=== PATIENT | female | born 1965 | race African-American/Black ===

== ENCOUNTER 2021-08-01 08:36 | Inpatient (IN) | payer OTHER ==
[2021-08-01 09:26] VITALS: BMI 15.7
[2021-08-01] MEDS ORDERED: NICOTINE 10 MG CARTRIDGE (INHALER) IH PRN (10:01)
[2021-08-01] MEDS ORDERED: ONDANSETRON *ODT* 4 MG TABLET SL PRN (10:01)
[2021-08-01] MEDS ORDERED: MAGNESIUM CITRATE 300 ML BOTTLE PO PRN (10:01)
[2021-08-01] MEDS ORDERED: MAGNESIUM HYDROX 2400MG/30ML ORAL SUSPENSION 30 ML CUP PO PRN (10:01)
[2021-08-01] MEDS ORDERED: DICYCLOMINE HCL 10 MG CAPSULE PO PRN (10:01)
[2021-08-01] MEDS ORDERED: LOPERAMIDE HCL 2 MG CAPSULE PO PRN (10:01)
[2021-08-01] MEDS ORDERED: METHOCARBAMOL 500 MG TABLET PO PRN (10:01)
[2021-08-01] MEDS ORDERED: BISMUTH SUBSALICYLATE 262 MG/15 ML BTL PO PRN (10:01)
[2021-08-01] MEDS ORDERED: IBUPROFEN 400 MG TABLET (FP) PO PRN (10:01)
[2021-08-01] MEDS ORDERED: MAG HYDROX/AL HYDROX/SIMETH 30 ML UNIT-DOSE CUP PO PRN (10:01)
[2021-08-01] MEDS ORDERED: BENZOCAINE/MENTHOL (CHLORASEPTIC ) LOZENGE MM PRN (10:01)
[2021-08-01] MEDS ORDERED: ACETAMINOPHEN 325 MG TABLET (FP) PO PRN ×2 (10:01)
[2021-08-01] MEDS: NICOTINE 14 MG/24 HOURS TOPICAL PATCH TD SCH (12:20)
[2021-08-01] MEDS: PRENATAL VITAMINS W/ FOLIC ACID TABLET (FP) PO SCH (12:20)
[2021-08-01] MEDS: hydrOXYzine PAMOATE 25 MG CAPSULE (FP) PO SCH ×3 (14:02→23:00)
[2021-08-01] MEDS: DARUNAVIR/COB/EMTRI/TENOF (SYMTUZA) TABLET (NF) PO SCH (15:15)
[2021-08-01] MEDS: THIAMINE HCL 100 MG TABLET (FP) PO SCH (23:00)
[2021-08-01] MEDS: MELATONIN 5 MG TABLETS PO SCH (23:00)
[2021-08-02] MEDS: hydrOXYzine PAMOATE 25 MG CAPSULE (FP) PO SCH ×5 (06:26→22:43)
[2021-08-02] MEDS: EMTRICITABINE PO SCH (07:28)
[2021-08-02] MEDS: TENOFOVIR ALAFENAMIDE PO SCH (07:28)
[2021-08-02] MEDS: DARUNAVIR PO SCH (07:28)
[2021-08-02] MEDS: COBICISTAT PO SCH (07:28)
[2021-08-02] MEDS: DARUNAVIR/COB/EMTRI/TENOF (SYMTUZA) TABLET (NF) PO SCH (07:29)
[2021-08-02 09:57] LABS: HEMATOCRIT 38.9 % (32.4-45.2); HEMOGLOBIN 12.8 GM/dL (10.7-15.3); MCH 29.7 pg (25.7-33.7); MCHC 32.9 g/dl (32.0-36.0); MEAN CELL VOLUME 90.2 fl (80-96); MEAN PLT VOLUME 9.6 fl (7.5-11.1); PLATELET COUNT 250 10^3/uL (134-434); RBC 4.31 M/mm3 (3.60-5.2); RDW 14.6 % (11.6-15.6); WHITE BLOOD COUNT 5.4 K/mm3 (4.0-10.0)
[2021-08-02 10:01] LABS: BLOOD UREA NITROGEN 10.9 mg/dL (7-18); CALCIUM 9.3 mg/dL (8.5-10.1)
[2021-08-02 10:02] LABS: ALBUMIN 3.6 g/dl (3.4-5.0)
[2021-08-02 10:04] LABS: CREATININE 1.1 mg/dL (0.55-1.3)
[2021-08-02 10:06] LABS: BILIRUBIN,TOTAL 0.5 mg/dL (0.2-1); TOT PROT 7.4 g/dl (6.4-8.2)
[2021-08-02] MEDS: PRENATAL VITAMINS W/ FOLIC ACID TABLET (FP) PO SCH (11:02)
[2021-08-02] MEDS: NICOTINE 14 MG/24 HOURS TOPICAL PATCH TD SCH (11:02)
[2021-08-02] MEDS ORDERED: chlordiazePOXIDE HCL 25 MG CAPSULE PO PRN (12:00)
[2021-08-02] MEDS: chlordiazePOXIDE HCL 25 MG CAPSULE PO SCH ×2 (17:33→22:45)
[2021-08-02] MEDS: MELATONIN 5 MG TABLETS PO SCH (22:43)
[2021-08-02] MEDS: THIAMINE HCL 100 MG TABLET (FP) PO SCH (22:43)
[2021-08-03] MEDS: hydrOXYzine PAMOATE 25 MG CAPSULE (FP) PO SCH ×4 (07:21→18:14)
[2021-08-03] MEDS: chlordiazePOXIDE HCL 25 MG CAPSULE PO SCH ×3 (07:22→18:17)
[2021-08-03] MEDS: DARUNAVIR PO SCH (07:23)
[2021-08-03] MEDS: EMTRICITABINE PO SCH (07:23)
[2021-08-03] MEDS: TENOFOVIR ALAFENAMIDE PO SCH (07:23)
[2021-08-03] MEDS: COBICISTAT PO SCH (07:23)
[2021-08-03] MEDS: PRENATAL VITAMINS W/ FOLIC ACID TABLET (FP) PO SCH (10:42)
[2021-08-03] MEDS: NICOTINE 14 MG/24 HOURS TOPICAL PATCH TD SCH (10:42)
[2021-08-03 14:10] LABS: SARS-CoV-2 NAA Not Detected (Not Detected)
[2021-08-03] MEDS ORDERED: hydrOXYzine PAMOATE 50 MG CAPSULE (FP) PO PRN (22:00)
[2021-08-03] MEDS ORDERED: traZODone HCL 50 MG TABLET (FP) PO SCH (22:00)
[2021-08-03] MEDS ORDERED: diazePAM 5 MG TABLET PO ONE (23:08)
[2021-08-03] MEDS: THIAMINE HCL 100 MG TABLET (FP) PO SCH (23:29)
[2021-08-03] MEDS: MELATONIN 5 MG TABLETS PO SCH (23:29)
[2021-08-04] MEDS ORDERED: chlordiazePOXIDE HCL 25 MG CAPSULE PO SCH (05:00)
[2021-08-04] MEDS: TENOFOVIR ALAFENAMIDE PO SCH (10:48)
[2021-08-04] MEDS: COBICISTAT PO SCH (10:48)
[2021-08-04] MEDS: DARUNAVIR PO SCH (10:48)
[2021-08-04] MEDS: diazePAM 5 MG TABLET PO SCH ×3 (10:48→22:26)
[2021-08-04] MEDS: EMTRICITABINE PO SCH (10:48)
[2021-08-04] MEDS: NICOTINE 14 MG/24 HOURS TOPICAL PATCH TD SCH (10:49)
[2021-08-04] MEDS: PRENATAL VITAMINS W/ FOLIC ACID TABLET (FP) PO SCH (11:29)
[2021-08-04] MEDS ORDERED: diazePAM 5 MG TABLET PO SCH (22:00)
[2021-08-04] MEDS: MELATONIN 5 MG TABLETS PO SCH (22:25)
[2021-08-04] MEDS: THIAMINE HCL 100 MG TABLET (FP) PO SCH (22:26)
[2021-08-05] MEDS ORDERED: chlordiazePOXIDE HCL 10 MG CAPSULE PO PRN
[2021-08-05] MEDS ORDERED: chlordiazePOXIDE HCL 10 MG CAPSULE PO SCH (05:00)
[2021-08-05] MEDS: diazePAM 5 MG TABLET PO SCH ×2 (06:03→17:36)
[2021-08-05] MEDS: EMTRICITABINE PO SCH (08:15)
[2021-08-05] MEDS: DARUNAVIR PO SCH (08:15)
[2021-08-05] MEDS: COBICISTAT PO SCH (08:15)
[2021-08-05] MEDS: TENOFOVIR ALAFENAMIDE PO SCH (08:15)
[2021-08-05] MEDS: NICOTINE 14 MG/24 HOURS TOPICAL PATCH TD SCH (10:20)
[2021-08-05] MEDS: PRENATAL VITAMINS W/ FOLIC ACID TABLET (FP) PO SCH (10:20)
[2021-08-05] MEDS: MELATONIN 5 MG TABLETS PO SCH (22:54)
[2021-08-05] MEDS: THIAMINE HCL 100 MG TABLET (FP) PO SCH (22:54)
[2021-08-06] MEDS ORDERED: chlordiazePOXIDE HCL 10 MG CAPSULE PO SCH (05:00)
[2021-08-06] MEDS ORDERED: diazePAM 5 MG TABLET PO SCH (06:00)
[2021-08-06] MEDS ORDERED: diazePAM 5 MG TABLET PO ONE (06:00)
[2021-08-06] MEDS: EMTRICITABINE PO SCH (07:06)
[2021-08-06] MEDS: COBICISTAT PO SCH (07:06)
[2021-08-06] MEDS: DARUNAVIR PO SCH (07:06)
[2021-08-06] MEDS: TENOFOVIR ALAFENAMIDE PO SCH (07:06)
[2021-08-06] MEDS: NICOTINE 14 MG/24 HOURS TOPICAL PATCH TD SCH (10:06)
[2021-08-06] MEDS: PRENATAL VITAMINS W/ FOLIC ACID TABLET (FP) PO SCH (10:09)
[2021-08-06] MEDS: MELATONIN 5 MG TABLETS PO SCH (21:43)
[2021-08-06] MEDS: THIAMINE HCL 100 MG TABLET (FP) PO SCH (21:44)
[2021-08-07] MEDS ORDERED: chlordiazePOXIDE HCL 10 MG CAPSULE PO ONE (05:00)
[2021-08-07] MEDS ORDERED: diazePAM 5 MG TABLET PO ONE (06:00)
[2021-08-07] MEDS: TENOFOVIR ALAFENAMIDE PO SCH (07:11)
[2021-08-07] MEDS: DARUNAVIR PO SCH (07:11)
[2021-08-07] MEDS: EMTRICITABINE PO SCH (07:11)
[2021-08-07] MEDS: COBICISTAT PO SCH (07:11)
[2021-08-07] MEDS: PRENATAL VITAMINS W/ FOLIC ACID TABLET (FP) PO SCH (10:36)
[2021-08-07] MEDS: NICOTINE 14 MG/24 HOURS TOPICAL PATCH TD SCH (10:38)
[2021-08-07] MEDS: THIAMINE HCL 100 MG TABLET (FP) PO SCH (21:38)
[2021-08-07] MEDS: MELATONIN 5 MG TABLETS PO SCH (21:38)
[2021-08-08 08:44] VITALS: BP 103/65; PULSE 65; TEMP 97.3
[2021-08-08] MEDS: TENOFOVIR ALAFENAMIDE PO SCH (10:47)
[2021-08-08] MEDS: COBICISTAT PO SCH (10:47)
[2021-08-08] MEDS: EMTRICITABINE PO SCH (10:47)
[2021-08-08] MEDS: PRENATAL VITAMINS W/ FOLIC ACID TABLET (FP) PO SCH (10:47)
[2021-08-08] MEDS: DARUNAVIR PO SCH (10:47)
== END 2021-08-08 10:50 | disposition other institution (70) | DRG 774 ==
LOC: YASAS 08:36 → Y3N 11:19
PROVIDERS: ADMIT Allergy & Immunology; ATTEND Allergy & Immunology
PROC: HZ2ZZZZ Detoxification Services for Substance Abuse Treatment (ICD-10-PCS; principal; 2021-08-01)
DX: F10.230 Alcohol dependence with withdrawal, uncomplicated (principal); F14.20 Cocaine dependence, uncomplicated; F12.20 Cannabis dependence, uncomplicated; F17.210 Nicotine dependence, cigarettes, uncomplicated; Z21 Asymptomatic human immunodeficiency virus [HIV] infection status; G47.00 Insomnia, unspecified; Z86.19 Personal history of other infectious and parasitic diseases; Z28.310 Unvaccinated for COVID-19
CPT/HCPCS: 36415; 80053; 81025; 85027; 86593; 86780; 93005; 93010; C9803-CS; U0003; U0005

== ENCOUNTER 2021-08-08 11:01 | Inpatient (IN) | payer OTHER ==
[2021-08-08] MEDS ORDERED: BENZOCAINE/MENTHOL (CHLORASEPTIC ) LOZENGE MM PRN (12:00)
[2021-08-08] MEDS ORDERED: MAGNESIUM HYDROX 2400MG/30ML ORAL SUSPENSION 30 ML CUP PO PRN (12:00)
[2021-08-08] MEDS ORDERED: MAGNESIUM CITRATE 300 ML BOTTLE PO PRN (12:00)
[2021-08-08] MEDS ORDERED: ACETAMINOPHEN 325 MG TABLET (FP) PO PRN (12:00)
[2021-08-08] MEDS ORDERED: MAG HYDROX/AL HYDROX/SIMETH 30 ML UNIT-DOSE CUP PO PRN (12:00)
[2021-08-08] MEDS ORDERED: P-EPHED 60MG/TRIPROLIDI 2.5MG TABLET PO PRN (12:00)
[2021-08-08] MEDS ORDERED: guaiFENesin 200 MG/10 ML 10 ML UNIT-DOSE CUPS PO PRN (12:00)
[2021-08-08] MEDS ORDERED: LOPERAMIDE HCL 2 MG CAPSULE PO PRN (12:00)
[2021-08-08] MEDS: NICOTINE 7 MG/24 HOURS TOPICAL PATCH TD SCH (12:43)
[2021-08-08] MEDS: MELATONIN 5 MG TABLETS PO SCH (21:14)
[2021-08-08] MEDS: THIAMINE HCL 100 MG TABLET (FP) PO SCH (21:15)
[2021-08-08] MEDS: MIRTAZAPINE 15 MG TABLET (FP) PO SCH (21:17)
[2021-08-09] MEDS: NICOTINE 7 MG/24 HOURS TOPICAL PATCH TD SCH (10:33)
[2021-08-09] MEDS: PRENATAL VITAMINS W/ FOLIC ACID TABLET (FP) PO SCH (10:33)
[2021-08-09] MEDS: DARUNAVIR/COB/EMTRI/TENOF (SYMTUZA) TABLET (NF) PO SCH (10:34)
[2021-08-09] MEDS: hydrOXYzine PAMOATE 25 MG CAPSULE (FP) PO PRN ×2 (10:34→21:13)
[2021-08-09] MEDS: IBUPROFEN 400 MG TABLET (FP) PO PRN (12:12)
[2021-08-09] MEDS: FLUOCINONIDE 0.05% CREAM (15 GM TUBE) TP SCH (17:09)
[2021-08-09] MEDS: MIRTAZAPINE 15 MG TABLET (FP) PO SCH (21:12)
[2021-08-09] MEDS: MELATONIN 5 MG TABLETS PO SCH (21:12)
[2021-08-09] MEDS: THIAMINE HCL 100 MG TABLET (FP) PO SCH (21:12)
[2021-08-10] MEDS: NICOTINE 7 MG/24 HOURS TOPICAL PATCH TD SCH (10:54)
[2021-08-10] MEDS: PRENATAL VITAMINS W/ FOLIC ACID TABLET (FP) PO SCH (10:54)
[2021-08-10] MEDS: DARUNAVIR/COB/EMTRI/TENOF (SYMTUZA) TABLET (NF) PO SCH (10:55)
[2021-08-10] MEDS: FLUOCINONIDE 0.05% CREAM (15 GM TUBE) TP SCH (10:55)
[2021-08-10] MEDS: NICOTINE 10 MG CARTRIDGE (INHALER) IH PRN (22:03)
[2021-08-10] MEDS: MELATONIN 5 MG TABLETS PO SCH (22:05)
[2021-08-10] MEDS: MIRTAZAPINE 15 MG TABLET (FP) PO SCH (22:05)
[2021-08-10] MEDS: THIAMINE HCL 100 MG TABLET (FP) PO SCH (22:06)
[2021-08-10] MEDS: hydrOXYzine PAMOATE 25 MG CAPSULE (FP) PO PRN (22:06)
[2021-08-11] MEDS: DARUNAVIR/COB/EMTRI/TENOF (SYMTUZA) TABLET (NF) PO SCH (08:02)
[2021-08-11] MEDS: PRENATAL VITAMINS W/ FOLIC ACID TABLET (FP) PO SCH (10:22)
[2021-08-11] MEDS: NICOTINE 7 MG/24 HOURS TOPICAL PATCH TD SCH (10:23)
[2021-08-11] MEDS: FLUOCINONIDE 0.05% CREAM (15 GM TUBE) TP SCH (10:23)
[2021-08-11] MEDS: MIRTAZAPINE 15 MG TABLET (FP) PO SCH (21:08)
[2021-08-11] MEDS: MELATONIN 5 MG TABLETS PO SCH (21:08)
[2021-08-11] MEDS: THIAMINE HCL 100 MG TABLET (FP) PO SCH (21:08)
[2021-08-12] MEDS: DARUNAVIR/COB/EMTRI/TENOF (SYMTUZA) TABLET (NF) PO SCH (07:08)
[2021-08-12] MEDS: NICOTINE 7 MG/24 HOURS TOPICAL PATCH TD SCH (10:45)
[2021-08-12] MEDS: PRENATAL VITAMINS W/ FOLIC ACID TABLET (FP) PO SCH (10:46)
[2021-08-12] MEDS: FLUOCINONIDE 0.05% CREAM (15 GM TUBE) TP SCH (13:52)
[2021-08-12] MEDS: MIRTAZAPINE 15 MG TABLET (FP) PO SCH (21:17)
[2021-08-12] MEDS: MELATONIN 5 MG TABLETS PO SCH (21:17)
[2021-08-12] MEDS: THIAMINE HCL 100 MG TABLET (FP) PO SCH (21:17)
[2021-08-13] MEDS: DARUNAVIR/COB/EMTRI/TENOF (SYMTUZA) TABLET (NF) PO SCH (07:08)
[2021-08-13] MEDS: NICOTINE 7 MG/24 HOURS TOPICAL PATCH TD SCH (10:57)
[2021-08-13] MEDS: hydrOXYzine PAMOATE 25 MG CAPSULE (FP) PO PRN ×2 (10:57→21:48)
[2021-08-13] MEDS: FLUOCINONIDE 0.05% CREAM (15 GM TUBE) TP SCH ×2 (10:57→13:15)
[2021-08-13] MEDS: PRENATAL VITAMINS W/ FOLIC ACID TABLET (FP) PO SCH (10:57)
[2021-08-13] MEDS ORDERED: HYDROCORTISONE 2.5% TOPICAL CREAM 30 GM TUBE TP SCH (12:00)
[2021-08-13] MEDS: THIAMINE HCL 100 MG TABLET (FP) PO SCH (21:47)
[2021-08-13] MEDS: MELATONIN 5 MG TABLETS PO SCH (21:47)
[2021-08-13] MEDS: MIRTAZAPINE 15 MG TABLET (FP) PO SCH (21:48)
[2021-08-13] MEDS: HYDROCORTISONE 2.5% TOPICAL CREAM 30 GM TUBE RC SCH (21:49)
[2021-08-14] MEDS: DARUNAVIR/COB/EMTRI/TENOF (SYMTUZA) TABLET (NF) PO SCH (07:08)
[2021-08-14] MEDS: NICOTINE 7 MG/24 HOURS TOPICAL PATCH TD SCH (10:24)
[2021-08-14] MEDS: PRENATAL VITAMINS W/ FOLIC ACID TABLET (FP) PO SCH (10:24)
[2021-08-14] MEDS: NICOTINE 10 MG CARTRIDGE (INHALER) IH PRN ×2 (10:25→21:24)
[2021-08-14] MEDS: FLUOCINONIDE 0.05% CREAM (15 GM TUBE) TP SCH (10:26)
[2021-08-14] MEDS: HYDROCORTISONE 2.5% TOPICAL CREAM 30 GM TUBE RC SCH ×2 (10:26→21:22)
[2021-08-14] MEDS: hydrOXYzine PAMOATE 25 MG CAPSULE (FP) PO PRN (10:27)
[2021-08-14] MEDS: MIRTAZAPINE 15 MG TABLET (FP) PO SCH (21:17)
[2021-08-14] MEDS: MELATONIN 5 MG TABLETS PO SCH (21:18)
[2021-08-14] MEDS: THIAMINE HCL 100 MG TABLET (FP) PO SCH (21:18)
[2021-08-14] MEDS: IBUPROFEN 400 MG TABLET (FP) PO PRN (21:21)
[2021-08-15] MEDS: DARUNAVIR/COB/EMTRI/TENOF (SYMTUZA) TABLET (NF) PO SCH (07:08)
[2021-08-15] MEDS: PRENATAL VITAMINS W/ FOLIC ACID TABLET (FP) PO SCH (10:10)
[2021-08-15] MEDS: NICOTINE 7 MG/24 HOURS TOPICAL PATCH TD SCH (10:11)
[2021-08-15] MEDS: NICOTINE 10 MG CARTRIDGE (INHALER) IH PRN ×2 (10:11→21:10)
[2021-08-15] MEDS: FLUOCINONIDE 0.05% CREAM (15 GM TUBE) TP SCH (10:40)
[2021-08-15] MEDS: HYDROCORTISONE 2.5% TOPICAL CREAM 30 GM TUBE RC SCH ×2 (10:40→21:11)
[2021-08-15] MEDS: THIAMINE HCL 100 MG TABLET (FP) PO SCH (21:09)
[2021-08-15] MEDS: MELATONIN 5 MG TABLETS PO SCH (21:09)
[2021-08-15] MEDS: MIRTAZAPINE 15 MG TABLET (FP) PO SCH (21:09)
[2021-08-15] MEDS: IBUPROFEN 400 MG TABLET (FP) PO PRN (21:13)
[2021-08-16] MEDS: NICOTINE 10 MG CARTRIDGE (INHALER) IH PRN ×3 (06:16→21:15)
[2021-08-16] MEDS: NICOTINE 7 MG/24 HOURS TOPICAL PATCH TD SCH (09:36)
[2021-08-16] MEDS: PRENATAL VITAMINS W/ FOLIC ACID TABLET (FP) PO SCH (09:36)
[2021-08-16] MEDS: DARUNAVIR/COB/EMTRI/TENOF (SYMTUZA) TABLET (NF) PO SCH (09:38)
[2021-08-16] MEDS: FLUOCINONIDE 0.05% CREAM (15 GM TUBE) TP SCH (09:39)
[2021-08-16] MEDS: HYDROCORTISONE 2.5% TOPICAL CREAM 30 GM TUBE RC SCH ×2 (09:40→21:14)
[2021-08-16] MEDS: IBUPROFEN 400 MG TABLET (FP) PO PRN (21:13)
[2021-08-16] MEDS: THIAMINE HCL 100 MG TABLET (FP) PO SCH (21:14)
[2021-08-16] MEDS: MELATONIN 5 MG TABLETS PO SCH (21:14)
[2021-08-16] MEDS: MIRTAZAPINE 15 MG TABLET (FP) PO SCH (21:14)
[2021-08-16] MEDS: hydrOXYzine PAMOATE 25 MG CAPSULE (FP) PO PRN (21:15)
[2021-08-17] MEDS: DARUNAVIR/COB/EMTRI/TENOF (SYMTUZA) TABLET (NF) PO SCH (08:27)
[2021-08-17] MEDS: IBUPROFEN 400 MG TABLET (FP) PO PRN ×2 (10:26→21:36)
[2021-08-17] MEDS: NICOTINE 7 MG/24 HOURS TOPICAL PATCH TD SCH (10:26)
[2021-08-17] MEDS: HYDROCORTISONE 2.5% TOPICAL CREAM 30 GM TUBE RC SCH ×2 (10:27→21:39)
[2021-08-17] MEDS: PRENATAL VITAMINS W/ FOLIC ACID TABLET (FP) PO SCH (10:27)
[2021-08-17] MEDS: NICOTINE 10 MG CARTRIDGE (INHALER) IH PRN ×2 (10:27→21:34)
[2021-08-17] MEDS: FLUOCINONIDE 0.05% CREAM (15 GM TUBE) TP SCH (10:27)
[2021-08-17] MEDS: THIAMINE HCL 100 MG TABLET (FP) PO SCH (21:34)
[2021-08-17] MEDS: MIRTAZAPINE 15 MG TABLET (FP) PO SCH (21:34)
[2021-08-17] MEDS: hydrOXYzine PAMOATE 25 MG CAPSULE (FP) PO PRN (21:35)
[2021-08-18] MEDS: MELATONIN 5 MG TABLETS PO SCH ×2 (00:03→21:33)
[2021-08-18] MEDS: DARUNAVIR/COB/EMTRI/TENOF (SYMTUZA) TABLET (NF) PO SCH (07:32)
[2021-08-18] MEDS: NICOTINE 10 MG CARTRIDGE (INHALER) IH PRN ×2 (10:22→21:40)
[2021-08-18] MEDS: FLUOCINONIDE 0.05% CREAM (15 GM TUBE) TP SCH (10:22)
[2021-08-18] MEDS: HYDROCORTISONE 2.5% TOPICAL CREAM 30 GM TUBE RC SCH ×2 (10:22→21:37)
[2021-08-18] MEDS: PRENATAL VITAMINS W/ FOLIC ACID TABLET (FP) PO SCH (10:23)
[2021-08-18] MEDS: NICOTINE 7 MG/24 HOURS TOPICAL PATCH TD SCH (10:23)
[2021-08-18] MEDS: THIAMINE HCL 100 MG TABLET (FP) PO SCH (21:32)
[2021-08-18] MEDS: IBUPROFEN 400 MG TABLET (FP) PO PRN (21:36)
[2021-08-18] MEDS: MIRTAZAPINE 15 MG TABLET (FP) PO SCH (21:37)
[2021-08-18] MEDS: METHOCARBAMOL 500 MG TABLET PO PRN (21:39)
[2021-08-18] MEDS: hydrOXYzine PAMOATE 25 MG CAPSULE (FP) PO PRN (21:41)
[2021-08-19] MEDS: DARUNAVIR/COB/EMTRI/TENOF (SYMTUZA) TABLET (NF) PO SCH (07:32)
[2021-08-19] MEDS: PRENATAL VITAMINS W/ FOLIC ACID TABLET (FP) PO SCH (10:28)
[2021-08-19] MEDS: NICOTINE 10 MG CARTRIDGE (INHALER) IH PRN ×2 (10:28→21:11)
[2021-08-19] MEDS: NICOTINE 7 MG/24 HOURS TOPICAL PATCH TD SCH (10:28)
[2021-08-19] MEDS: HYDROCORTISONE 2.5% TOPICAL CREAM 30 GM TUBE RC SCH ×2 (10:29→21:11)
[2021-08-19] MEDS: FLUOCINONIDE 0.05% CREAM (15 GM TUBE) TP SCH (10:29)
[2021-08-19] MEDS: THIAMINE HCL 100 MG TABLET (FP) PO SCH (21:09)
[2021-08-19] MEDS: METHOCARBAMOL 500 MG TABLET PO PRN (21:09)
[2021-08-19] MEDS: MELATONIN 5 MG TABLETS PO SCH (21:09)
[2021-08-19] MEDS: MIRTAZAPINE 15 MG TABLET (FP) PO SCH (21:09)
[2021-08-19] MEDS: hydrOXYzine PAMOATE 25 MG CAPSULE (FP) PO PRN (21:09)
[2021-08-20] MEDS: NICOTINE 7 MG/24 HOURS TOPICAL PATCH TD SCH (10:22)
[2021-08-20] MEDS: NICOTINE 10 MG CARTRIDGE (INHALER) IH PRN ×3 (10:22→19:53)
[2021-08-20] MEDS: HYDROCORTISONE 2.5% TOPICAL CREAM 30 GM TUBE RC SCH ×2 (10:24→21:10)
[2021-08-20] MEDS: FLUOCINONIDE 0.05% CREAM (15 GM TUBE) TP SCH (10:26)
[2021-08-20] MEDS: PRENATAL VITAMINS W/ FOLIC ACID TABLET (FP) PO SCH (10:26)
[2021-08-20] MEDS: DARUNAVIR/COB/EMTRI/TENOF (SYMTUZA) TABLET (NF) PO SCH (10:28)
[2021-08-20] MEDS: MELATONIN 5 MG TABLETS PO SCH (21:08)
[2021-08-20] MEDS: THIAMINE HCL 100 MG TABLET (FP) PO SCH (21:08)
[2021-08-20] MEDS: MIRTAZAPINE 15 MG TABLET (FP) PO SCH (21:10)
[2021-08-20] MEDS: METHOCARBAMOL 500 MG TABLET PO PRN (21:10)
[2021-08-21] MEDS: NICOTINE 10 MG CARTRIDGE (INHALER) IH PRN ×5 (06:17→21:16)
[2021-08-21] MEDS: DARUNAVIR/COB/EMTRI/TENOF (SYMTUZA) TABLET (NF) PO SCH (07:04)
[2021-08-21] MEDS: NICOTINE 7 MG/24 HOURS TOPICAL PATCH TD SCH (10:26)
[2021-08-21] MEDS: FLUOCINONIDE 0.05% CREAM (15 GM TUBE) TP SCH (10:26)
[2021-08-21] MEDS: PRENATAL VITAMINS W/ FOLIC ACID TABLET (FP) PO SCH (10:26)
[2021-08-21] MEDS: HYDROCORTISONE 2.5% TOPICAL CREAM 30 GM TUBE RC SCH ×2 (10:28→21:18)
[2021-08-21] MEDS: METHOCARBAMOL 500 MG TABLET PO PRN (21:16)
[2021-08-21] MEDS: MELATONIN 5 MG TABLETS PO SCH (21:16)
[2021-08-21] MEDS: hydrOXYzine PAMOATE 25 MG CAPSULE (FP) PO PRN (21:16)
[2021-08-21] MEDS: MIRTAZAPINE 15 MG TABLET (FP) PO SCH (21:16)
[2021-08-21] MEDS: THIAMINE HCL 100 MG TABLET (FP) PO SCH (21:16)
[2021-08-22] MEDS: NICOTINE 10 MG CARTRIDGE (INHALER) IH PRN ×2 (05:53→09:17)
[2021-08-22] MEDS: FLUOCINONIDE 0.05% CREAM (15 GM TUBE) TP SCH ×2 (07:28→09:17)
[2021-08-22 07:34] VITALS: TEMP 97.5
[2021-08-22] MEDS: DARUNAVIR/COB/EMTRI/TENOF (SYMTUZA) TABLET (NF) PO SCH (08:02)
[2021-08-22] MEDS: HYDROCORTISONE 2.5% TOPICAL CREAM 30 GM TUBE RC SCH (09:16)
[2021-08-22] MEDS: PRENATAL VITAMINS W/ FOLIC ACID TABLET (FP) PO SCH (09:17)
[2021-08-22] MEDS: NICOTINE 7 MG/24 HOURS TOPICAL PATCH TD SCH (09:17)
[2021-08-22 11:14] VITALS: BP 121/69; PULSE 88
== END 2021-08-22 10:15 | disposition home or self-care (01) | DRG 772 ==
LOC: YASAS 11:01 → Y5N 11:03
PROVIDERS: ADMIT Allergy & Immunology; ATTEND Psychiatry & Neurology Pain Medicine
PROC: HZ42ZZZ Group Counseling for Substance Abuse Treatment, Cognitive-Behavioral (ICD-10-PCS; principal; 2021-08-08)
DX: F10.20 Alcohol dependence, uncomplicated (principal); F14.20 Cocaine dependence, uncomplicated; F12.20 Cannabis dependence, uncomplicated; F17.210 Nicotine dependence, cigarettes, uncomplicated; F19.24 Other psychoactive substance dependence with psychoactive substance-induced mood disorder; F41.8 Other specified anxiety disorders; F32.A Depression, unspecified; Z21 Asymptomatic human immunodeficiency virus [HIV] infection status; R64 Cachexia; G47.00 Insomnia, unspecified; K64.9 Unspecified hemorrhoids; L30.9 Dermatitis, unspecified
CPT/HCPCS: C9803-CS; U0003; U0005